=== PATIENT | female | born 1960 | race Caucasian/White ===

== ENCOUNTER 2024-07-28 06:56 | Day surgery (SDC) | payer BC ==
[2024-07-28] MEDS ORDERED: Midazolam 1 MG/ML 2 ML SDV ONE (07:40)
[2024-07-28] MEDS ORDERED: Propofol 200 MG/20 ML SDV ONE ×3 (07:40→09:17)
[2024-07-28] MEDS ORDERED: fentaNYL 50 MCG/ML SDV ONE (07:40)
[2024-07-28] MEDS: Lactated Ringers 1,000 ML IV SCH (08:20)
[2024-07-28] MEDS: Sodium Chloride 0.9% 10 ML Syringe FLUSH ONE (11:24)
[2024-07-28] MEDS: Sodium Chloride 0.9% 80 ML IV SCH (11:24)
[2024-07-28] MEDS: Iopamidol 612 MG/ML 100 ML Bottle IV SCH (11:24)
[2024-07-28 11:33] LABS: HEMATOCRIT 33.7 % (34.3-46.0); MEAN CORPUSCULAR HEMOGLOBIN 27.1 pg (31.6-35.5); MEAN CORPUSCULAR HGB CONC 32.6 g/dL (31.6-35.5); RED BLOOD CELL COUNT 4.06 M/uL (3.77-5.24)
[2024-07-28 11:54] LABS: A/G RATIO 0.6 (1.2-2.2); ALANINE AMINOTRANSFERASE,ALT 18 U/L (12-78); ALBUMIN 2.5 g/dL (3.4-5.0); ALKALINE PHOSPHATASE 92 U/L (46-116); ASPARTATE AMNIOTRANSFERASE,AST 18 U/L (15-37); BILIRUBIN TOTAL 0.3 mg/dL (0.2-1.0); BLOOD UREA NITROGEN,BUN 2 mg/dL (7-18); CALCIUM 8.1 mg/dL (8.5-10.1); CARBON DIOXIDE,CO2 29 mmol/L (21-32); CHLORIDE,CL 100 mmol/L (100-108); CREATININE 0.9 mg/dL (0.6-1.0); EST CRCL DRUG DOSING (CG) 56.68 mL/min; ESTIMATED GFR 73 mL/min (>60); GLUCOSE RANDOM 99 mg/dL (74-106); PROTEIN TOTAL,TP 6.8 g/dL (6.4-8.2); SODIUM,NA 137 mmol/L (140-148)
[2024-07-28 11:58] LABS: ANION GAP 10.9 mmol/L (5.0-14.0); POTASSIUM,K 2.9 mmol/L (3.6-5.2)
[2024-08-01 21:40] LABS: CARCINOEMBRYONIC ANTIGEN 2.9 ng/mL (<=3.8)
== END 2024-07-28 11:55 | disposition home or self-care (01) ==
LOC: JP.SDS 06:56
PROVIDERS: ATTEND Family Medicine
DX: C20 Malignant neoplasm of rectum (principal); R19.5 Other fecal abnormalities; K64.4 Residual hemorrhoidal skin tags; K57.30 Diverticulosis of large intestine without perforation or abscess without bleeding; F17.200 Nicotine dependence, unspecified, uncomplicated
CPT/HCPCS: 00811; 36415; 45380; 71260; 74177; 80053; 82378; 85027; 88305; 88341; 88342; J2250; J2704; J3010; J7120; Q9967

== ENCOUNTER 2024-07-28 12:54 | Emergency (ER) | payer BC ==
[2024-07-28] MEDS: Potassium Chloride 10 MEQ in Premix Bag 1 BAG IV ONE ×2 (14:46→15:52)
[2024-07-28] MEDS: Potassium Chloride 20 MEQ Tab.ER PO ONE (14:46)
[2024-07-28] MEDS: Sodium Chloride 0.9% 1,000 ML IV ONE (14:46)
== END 2024-07-28 17:41 | disposition home or self-care (01) ==
LOC: JP.ED 12:54
DX: E87.6 Hypokalemia (principal); Z88.8 Allergy status to other drugs, medicaments and biological substances; Z79.51 Long term (current) use of inhaled steroids; Z79.899 Other long term (current) drug therapy
CPT/HCPCS: 36415; 84132; 96361; 96365; 96366; 99284; A9270; J3480; J7030; 99283